=== PATIENT | female | born 1940 | race Caucasian/White ===

== ENCOUNTER 2016-06-03 17:31 | Observation (INO) | payer MEDICARE, OTHER ==
[2016-06-03 18:20] LABS: Mean Cell Volume 80.1 fl (78-100); Mean Corpuscular Hemoglobin 24.9 pg (27-31); Mean Corpuscular Hgb Conc 31.1 g/dl (32-36); Mean Platelet Volume 12.8 fl (6.0-9.5); Neutrophil # 8.6 K/mm3 (1.3-6.0); Neutrophil % 72.1 % (42-75.0); Platelet Count 95 K/mm3 (150-450); Red Blood Count 2.97 M/mm3 (4.2-5.4); Red Cell Distribution Width 16.7 % (11.5-14.0); White Blood Count 11.9 K/mm3 (4.0-10.5)
[2016-06-03 18:22] LABS: Hematocrit 23.8 % (37.0-47.0); Hemoglobin 7.4 gm/dL (12.5-16.0)
[2016-06-03 18:37] LABS: Albumin * 2.7 gm/dl (3.4-5.0); Bilirubin, Total 2.2 mg/dL (0.0-1.1); Ca. Corrected For Albumin 9.4 mg/dL (8.4-10.2); Calcium * 8.7 mg/dL (7.9-10.9); Carbon Dioxide 20.6 mmol/L (24-32.6); Potassium 3.6 mmol/L (3.4-4.6); Troponin I 0.03 ng/ml (0.00-0.10)
--- NOTE | 2016-06-03 19:50 | ERNOTE ---
Dyspnea - General Presenting Symptoms: shortness of breath Time Seen by Provider: 06/03/16 19:34 Source: patient, family Exam Limitations: no limitations - Immun/Allergies/Home Medications Immunizations: IMMUNIZATION HX Immunizations Up to Date Yes History of Influenza Vaccine Yes Hx Pneumococcal Vaccination Yes Allergies/Adverse Reactions: Allergies Penicillins Allergy (Verified 06/03/16 17:54) tetracycline Allergy (Verified 06/03/16 17:54) Home Medications: HOME MEDICATIONS Levothyroxine Sodium [Synthroid] 75 mcg PO DAILY 08/04/15 [Last Taken Unknown] Multivit-Min/FA/Lycopene/Lut [Sentry Senior Multivitamin Tab] 1 each PO DAILY [Last Taken Unknown] Omeprazole [Prilosec] 20 mg PO DAILY 08/04/15 [Last Taken Unknown] Cholecalciferol [Vitamin D] 2,000 unit PO DAILY #.1 capsule 03/19/16 [Last Taken Unknown] glipiZIDE [Glucotrol Xl] 5 mg PO DAILY #.1 tablet 03/19/16 [Last Taken Unknown] Cyanocobalamin (Vitamin B-12) [Vitamin B-12] 500 mcg PO DAILY 06/03/16 [Last Taken Unknown] Furosemide [Lasix] 40 mg PO DAILY 06/03/16 [Last Taken Unknown] Metformin HCl [Metformin HCl ER] 500 mg PO BID 06/03/16 [Last Taken Unknown] Metoprolol Succinate 25 mg PO HS 06/03/16 [Last Taken Unknown] Spironolactone [Aldactone] 12.5 mg PO DAILY 06/03/16 [Last Taken Unknown] - History of Present Illness Narrative: Pt states she has been dyspneic for a couple of days and has had diuretics increased and an echocardiogram to explore CHF as reason for dyspnea. Brought to ER due to increasing dyspnea today Severity: moderate Initiating event: Reports: unknown Frequency of episodes: Reports: occassional episodes Modifying Factors (Worsens): Reports: activity Associated Symptoms-Dyspnea: Reports: palpitations, weakness Prior Treatment: Reports: recently seen, treated by physician Review of Systems - Review of Systems Constitutional: Present: fatigue. Absent: recent illness EYE: Present: no symptoms reported ENT: Present: no symptoms reported Respiratory: Present: shortness of breath, orthopnea, wheezing Cardiology: Present: palpitations, edema Gastrointestinal/Abdominal: Present: diarrhea - once this am, other - denies dark or bloody stools. Absent: nausea, vomiting Genitourinary: Present: no symptoms reported Musculoskeletal: Present: no symptoms reported Skin: Present: no symptoms reported Neurological: Present: weakness. Absent: numbness, tingling Endocrine: Present: no symptoms reported Hematologic/Lymphatic: Present: no symptoms reported Psych: Present: no symptoms reported - Patient's Past Medical History Patient History - Medical: Diabetes Type 2, GERD, Hypothyroidism, Osteoarthritis Patient History - Cardiac/Respiratory: CHF, CVA/Stroke, Hypertension Patient History - Cancer: No Hx of Cancer Patient History - Surgical Procedures: Appendectomy - Family History Father Family History - Medical: Family History - Cardiac/Respiratory: Myocardial Infarction Mother Family History - Medical: , Diabetes Type 2 Family History - Cardiac/Respiratory: History Unknown Sister Family History - Cancer: Breast - Social History Living Situations: spouse Does anyone smoke in the home?: No Alcohol Use: none Drug Use: none Physical Exam - Physical Exam General Appearance: Present: wd/wn, alert, no apparent distress Eye Exam: Normal inspection: bilateral Ears, Nose, Throat: Present: normal pharynx, dry mucous membranes Neck: Present: normal inspection, nontender Respiratory: Present: no respiratory distress, normal breath sounds, no accessory muscle use, lungs clear Cardiovascular/Chest: Present: regular rate, rhythm, systolic murmur - 4/6 left sternal border Gastrointestinal/Abdominal: Present: normal bowel sounds, nontender, nondistended, soft Back Exam: Present: normal inspection, normal range of motion Extremity Exam: Present: extremity edema - 2+ b/l Neurological Exam: Present: alert, oriented, normal mood/affect, no motor/ sensory deficits Skin Exam: Present: normal color, warm/dry Lymphatic Exam: Present: no adenopathy ED Progress - Results and Orders Patient's Lab Results:: I have reviewed the patient's lab results. Results and Orders: Laboratory Tests 06/03/16 06/03/16 18:10 18:10 WBC 11.9 H Hgb 7.4 L* Hct 23.8 L* Plt Count 95 L Sodium 139 Potassium 3.6 Chloride 105 Carbon Dioxide 20.6 L BUN 17 Creatinine 1.13 Est GFR (Non-Af Amer) 50 L D Random Glucose 179 H Calcium 8.7 Total Bilirubin 2.2 H AST 54 H ALT 39 Alkaline Phosphatase 118 Troponin I 0.030 B-Natriuretic Peptide 512 H Total Protein 7.0 Albumin 2.7 L - Vital Signs Patient's Vital Signs:: I have reviewed the patient's vital signs. Vital Signs: Vital Signs 06/03/16 06/03/16 17:47 19:14 Temperature 37.3 C Pulse Rate 99 99 Respiratory 24 H Rate Blood Pressure 125/69 O2 Sat by Pulse 96 Oximetry - Progress/Reassessment Chief Complaint: Dyspnea Departure Clinical Impression: Anemia Qualifiers: Anemia type: unspecified type Qualified Code(s): D64.9 - Anemia, unspecified CHF (congestive heart failure) Qualifiers: Congestive heart failure type: unspecified congestive heart failure type Congestive heart failure chronicity: acute on chronic Qualified Code(s): I50.9 - Heart failure, unspecified - Departure Disposition: [facility] Condition: Fair
[2016-06-03] MEDS ORDERED: ACETAMINOPHEN 325 MG TABLET PO ONE (20:39)
[2016-06-03] MEDS ORDERED: diphenhydrAMINE HCL 50 MG/ML VIAL IV ONE (20:39)
[2016-06-03] MEDS ORDERED: ACETAMINOPHEN 325 MG TABLET ONE (21:42)
[2016-06-03] MEDS ORDERED: diphenhydrAMINE HCL 50 MG/ML VIAL ONE (21:42)
[2016-06-03] MEDS ORDERED: FUROSEMIDE 10 MG/ML VIAL ONE (21:43)
[2016-06-03 22:21] LABS: Iron 16 mcg/dL (35-120); Transferrin Sat. (% Sat.) 5 % (15-55)
--- NOTE | 2016-06-03 22:36 | HP ---
Chief Complaint - Chief Complaint Date of Service: 06/03/16 Time of Service: 22:52 Chief Complaint: SOB History of Present Illness: Pt is a 76 year old pt of Dr. Robertson who presented to the ER with complaints of SOB. PMH is significant for:[id number]. Per EMR: "Pt states she has been dyspneic for a couple of days and has had diuretics increased and an echocardiogram to explore CHF as reason for dyspnea." At the time of my examination pt is slightly drowsy, drifting in and out of sleep due to IV Benadryl given per protocol prior to transfusion ordered in the ER. She just tells me that she has been SOB, cannot elaborate further. Denies hematochezia or hemauria, n/v/d, fevers or chills, or current NSAID use. In the ER workup was significant for H/H 7.4/23.8 (baseline ~03/05), Plt 95, WBC 11.9. K+ 3.6, Na + 139, BNP 512. Chest xray was negative for any acute abnormalities. She was noted to be tachypnic at 24, but O2 sat remained 96% on RA. She will be admitted to observation overnight for 1 unit PRBC transfusion and repeat labs in the morning as well as further workup of the etiology of her anemia. - Patient's Past Medical History Patient History - Medical: Anemia, Diabetes Type 2, GERD, Hypothyroidism, Osteoarthritis Patient History - Cardiac/Respiratory: CHF, CVA/Stroke, Hypertension Patient History - Cancer: No Hx of Cancer Patient History - Surgical Procedures: Appendectomy, Cataracts Patient History - Other: None - Family History Father Family History - Medical: Family History - Cardiac/Respiratory: Myocardial Infarction Mother Family History - Medical: , Diabetes Type 2 Family History - Cardiac/Respiratory: History Unknown Sister Family History - Cancer: Breast - Social History Living Situations: spouse Does anyone smoke in the home?: No Smoking Status: Never smoker Have you smoked in the past 12 months: No Alcohol Use: none Drug Use: none - Immunizations Immunizations Up to Date: Yes Hx Pneumococcal Vaccination: Yes History of Influenza Vaccine: Yes Review Of Systems (GEN) - Review of Systems Generalized/Overall Review: Present: Fatigue EENTM: Present: No Symptoms Reported Respiratory: Present: Shortness of Breath Cardiac: Present: Edema - BLE +1/2 Abdominal: Present: No Symptoms Reported Genitourinary: Present: No Symptoms Reported Musculoskeletal: Present: No Symptoms Reported Neurological: Present: No Symptoms Reported Skin: Present: No Symptoms Reported Endocrine: Present: No Symptoms Reported Allergies/Adverse Reactions: Allergies Allergy/AdvReac Type Severity Reaction Status Date / Time Penicillins Allergy Verified 06/03/16 17:54 tetracycline Allergy Verified 06/03/16 17:54 Home Medications: HOME MEDICATIONS Levothyroxine Sodium [Synthroid] 75 mcg PO DAILY 08/04/15 [Last Taken Unknown] Multivit-Min/FA/Lycopene/Lut [Sentry Senior Multivitamin Tab] 1 each PO DAILY [Last Taken Unknown] Omeprazole [Prilosec] 20 mg PO DAILY 08/04/15 [Last Taken Unknown] Cholecalciferol [Vitamin D] 2,000 unit PO DAILY #.1 capsule 03/19/16 [Last Taken Unknown] glipiZIDE [Glucotrol Xl] 5 mg PO DAILY #.1 tablet 03/19/16 [Last Taken Unknown] Cyanocobalamin (Vitamin B-12) [Vitamin B-12] 500 mcg PO DAILY 06/03/16 [Last Taken Unknown] Furosemide [Lasix] 40 mg PO DAILY 06/03/16 [Last Taken Unknown] Metformin HCl [Metformin HCl ER] 500 mg PO BID 06/03/16 [Last Taken Unknown] Metoprolol Succinate 25 mg PO HS 06/03/16 [Last Taken Unknown] Spironolactone [Aldactone] 12.5 mg PO DAILY 06/03/16 [Last Taken Unknown] Exam - Exam Vital Signs: Vital Signs - Last Taken Temp 36.7 C 06/03/16 21:09 Pulse 93 06/03/16 21:10 Resp 19 06/03/16 21:10 BP 107/53 06/03/16 21:10 Pulse Ox 90 06/03/16 21:10 Constitutional: Present: Alert, Oriented x3, Cooperative, No distress - drowsy, Elderly ENT Exam: Present: hearing grossly normal Eye Exam: bilateral eye: normal inspection, PERRL Back Exam: Present: normal inspection Respiratory: Present: chest non-tender, normal breath sounds, no respiratory distress, decreased breath sounds, No wheezing Cardiovascular/Chest: Present: normal peripheral pulses, regular rate, rhythm, no chest tenderness, no murmur, other - BLE edema, nonpitting Peripheral Pulses: dorsalis-pedis (R): 2+, dorsalis-pedis (L): 2+, radial (R): 2 +, radial (L): 2+ Abdomen: Present: Normal bowel sounds, soft, nontender, nondistended, no rebound tenderness Extremity: Present: normal range of motion, non-tender, normal inspection, no calf tenderness, lower extremity edema, pedal edema Skin Exam: Present: normal color, warm/dry, no cyanosis Neurologic: Present: alert, normal mood/affect, oriented x 3 Appearance: Present: appropriate appearance, appropriate insight Eye contact: Present: cooperative, good eye contact, normal speech Thoughts: Present: normal thought pattern, no apparent hallucination Diagnostic Studies: Laboratory Results Laboratory Tests 06/03/16 06/03/16 18:10 18:10 WBC 11.9 H RBC 2.97 L Hgb 7.4 L* Hct 23.8 L* MCH 24.9 L MCHC 31.1 L RDW 16.7 H Plt Count 95 L Sodium 139 Potassium 3.6 Chloride 105 Carbon Dioxide 20.6 L Anion Gap 17.0 H BUN 17 Creatinine 1.13 Est GFR (Non-Af Amer) 50 L D BUN/Creatinine Ratio 15.0 Random Glucose 179 H Total Bilirubin 2.2 H AST 54 H ALT 39 Alkaline Phosphatase 118 Troponin I 0.030 B-Natriuretic Peptide 512 H Total Protein 7.0 Albumin 2.7 L Assessment/Plan - Assessment/Plan (1) Anemia Assessment: Pt with symptomatic anemia presenting with SOB, unclear etiology at this time, no obvious signs of acute bleed. Will order occult stool. Last h/h in February of 2016 was 10.2/31.2. Will place on iron supplements daily. Transfuse with 1 unit PRBC, 20mg of lasix post transfusion with repeat labs in am. -Iron 325mg PO BIDWM -Transfuse one unit PRBC -20mg IV lasix post transfusion -CBC/CMP in am -PT/INR -TIBC, ferritin, B12, folate studies -Stool for occult blood Problem: Acute Qualifiers: Anemia type: unspecified type Qualified Code(s): D64.9 - Anemia, unspecified (2) Diabetes type 2, controlled Assessment: Stable -Blood glucose AC/HS -Consistent Carb diet -Metformin 500mg daily -Glyburide 5mg daily Problem: Chronic (3) Hypertension Assessment: Stable -Metoprolol 25mg HS Problem: Chronic (4) Hypothyroidism Assessment: Stable -Synthroid 75mcg daily Problem: Chronic (5) CHF (congestive heart failure) Assessment: Stable, echo completed 06/03/2015 -Spironolactone 12.5mg daily -Lasix 40mg daily -Daily wt -Strict i/o Problem: Chronic Qualifiers: Congestive heart failure type: unspecified congestive heart failure type Congestive heart failure chronicity: acute on chronic Qualified Code(s): I50.9 - Heart failure, unspecified
[2016-06-03 22:47] LABS: Folate 18.8 ng/mL (8.6-58.9)
[2016-06-04] MEDS: FUROSEMIDE 10 MG/ML VIAL IV ONE ×2 (01:28→15:17)
[2016-06-04 05:57] LABS: Mean Cell Volume 78.9 fl (78-100); Mean Corpuscular Hemoglobin 25.1 pg (27-31); Mean Corpuscular Hgb Conc 31.8 g/dl (32-36); Platelet Count 82 K/mm3 (150-450); Red Blood Count 3.03 M/mm3 (4.2-5.4); Red Cell Distribution Width 16.4 % (11.5-14.0); White Blood Count 7.6 K/mm3 (4.0-10.5)
[2016-06-04 06:11] LABS: Hematocrit 23.9 % (37.0-47.0); Hemoglobin 7.6 gm/dL (12.5-16.0)
[2016-06-04 06:19] LABS: Prothrombin Time (Patient) 15.4 Seconds (9.4-11.4)
[2016-06-04 06:20] LABS: INR 1.48 INR (0.90-1.10); Partial Thrombolplastin Time 28.7 Seconds (24-32)
[2016-06-04 06:22] LABS: Total Cells Counted 100
[2016-06-04 06:35] LABS: Albumin * 2.4 gm/dl (3.4-5.0); Anion Gap 15.8 mmol/L (6.8-13.8); BUN/Creatinine Ratio 17.9 (9.0-21.6); Bilirubin, Total 2.3 mg/dL (0.0-1.1); Ca. Corrected For Albumin 9.4 mg/dL (8.4-10.2); Calcium * 8.4 mg/dL (7.9-10.9); Carbon Dioxide 22.3 mmol/L (24-32.6); Potassium 3.1 mmol/L (3.4-4.6); Total Protein 6.1 gm/dL (6.2-8.2)
[2016-06-04] MEDS ORDERED: POTASSIUM CHLORIDE 20 MEQ TABLET.SA PO ONE (06:52)
[2016-06-04] MEDS ORDERED: PANTOPRAZOLE SODIUM 20 MG TABLET.DR PO SCH (07:00)
[2016-06-04] MEDS ORDERED: glipiZIDE 5 MG TAB.SR.24H PO SCH (07:00)
[2016-06-04] MEDS ORDERED: LEVOTHYROXINE SODIUM 75 MCG TABLET PO SCH (07:00)
[2016-06-04 08:02] LABS: Atypical (Reactive) Lymph 2 % (0-2); Band 5 % (0-2.0); Hypochromia 1+; Immature Granulocyte 1 (0-1); Lymphocyte 12 % (20-51); Macrocytosis 1+; Microcytosis 1+; Monocyte 6 % (0-9); Neutrophil 74 % (42-75); Neutrophil # 5.6 K/mm3 (1.3-6.0); Platelet Estimate Decreased (NORMAL); Polychromasia Trace; Target Cells Trace
[2016-06-04] MEDS ORDERED: CHOLECALCIFEROL 1,000 UNIT CAPSULE PO SCH (09:00)
[2016-06-04] MEDS ORDERED: SPIRONOLACTONE 25 MG TABLET PO SCH (09:00)
[2016-06-04] MEDS ORDERED: MULTIVITAMINS 1 CAP CAPSULE PO SCH (09:00)
[2016-06-04] MEDS ORDERED: FUROSEMIDE 40 MG TABLET PO SCH (09:00)
[2016-06-04] MEDS ORDERED: POTASSIUM CHLORIDE 20 MEQ TABLET.SA PO SCH (09:00)
[2016-06-04] MEDS ORDERED: CYANOCOBALAMIN 1,000 MCG TABLET PO SCH (09:00)
[2016-06-04] MEDS: metFORMIN HCL 500 MG TABLET PO SCH ×2 (09:04→17:14)
[2016-06-04] MEDS: FERROUS SULFATE 325 MG TABLET PO SCH ×2 (09:04→17:13)
[2016-06-04 09:21] LABS: Iron 26 mcg/dL (35-120); Transferrin Sat. (% Sat.) 9 % (15-55)
[2016-06-04] MEDS ORDERED: FUROSEMIDE 10 MG/ML VIAL IV ONE (09:37)
--- NOTE | 2016-06-04 12:13 | PATHPSR ---
PHYSICIAN: Layne Robertson LAB#: [id number] SPECIMEN DATE: 06/04/2016 CLINICAL INFORMATION: The patient is a 76-year-old woman who presented to ER with history of shortness of breath. She is discovered to have anemia H/H 7.4/ 23.1, Baseline ( in March 19, 2016). The patient has a history of anemia , diabetes type 2, GERD, hypothyroidism, osteoarthritis, congestive heart failure, CVA/stroke, hypertension. Peripheral smear evaluation by the pathologist is ordered due to anemia CBC: WBC 7.6 K/mm3, hemoglobin 7.6 gm/dl, hematocrit 23.9 %, MCV is 70.9 fl, MCH is 25.1 pg, MCHC is 31.8 g/dl, Platelet count 82,000. Manual differential: Neutrophils 74 %, bands 5 %, lymphocytes 12 %, monocytes 6 %, %, atypical reactive lymphocytes 2%, immature granulocytes 1%. RED BLOOD CELLS: 1+ hypochromasia, one process microcytosis, 1+ macrocytosis, trace target cells, 1+ elliptocytes and anemia PLATELETS: Thrombocytopenia WHITE BLOOD CELLS: Left shifted granulocytic series DIAGNOSIS: PERIPHERAL BLOOD SMEAR, REVIEW BY PATHOLOGIST: -ACUTE ANEMIA WITH FEATURES OF IRON DEFICIENCY -THROMBOCYTOPENIA -LEFT SHIFTED GRANULOCYTIC SERIES COMMENT: Examination of the peripheral smear shows some hypochromasia, microcytosis and elliptocytes, features suggestive of iron deficiency. Iron levels are low (26 ug/dL today, 16 ug/dl on 06/03/2016). Thrombocytopenia is longer term and present in February 2016. The etiology needs further evaluation including exclusion of consumption or immune thrombocytopenia. Left shift in granulocytic series appears reactive to acute illness. Hematology consultation and possible bone marrow evaluation may be necessary to evaluate the low platelet count. The low platelet count makes bleeding more likely and contributes to the possible etiology of the iron deficiency anemia. The findings are discussed with Dr. Robertson on 06/04/2016. No immature elements or malignancy is identified on our examination.
--- NOTE | 2016-06-04 14:40 | DS ---
(1) Iron deficiency anemia Problem: Acute Qualifiers: Iron deficiency anemia type: unspecified iron deficiency Qualified Code(s) : D50.9 - Iron deficiency anemia, unspecified (2) CHF (congestive heart failure) Problem: Chronic Qualifiers: Congestive heart failure type: diastolic Congestive heart failure chronicity: chronic Qualified Code(s): I50.32 - Chronic diastolic (congestive ) heart failure (3) Hypothyroidism Problem: Chronic Qualifiers: Hypothyroidism type: unspecified Qualified Code(s): E03.9 - Hypothyroidism , unspecified (4) Diabetes mellitus Problem: Chronic Qualifiers: Diabetes mellitus type: type 2 Diabetes mellitus complication status: with hyperglycemia (5) Obesity (BMI 30.0-34.9) Problem: Chronic Description of Stay: DATE OF ADMISSION: 06/03/2016. DATE OF DISCHARGE: 06/04/2016. HOSPITAL COURSE: Patient is a 76-yr old WF with a H/O HTN, T2 DM, HLD, GERD, OA, CVA who came into the ER for shortness of breath and difficulty in breathing. She was found to have a H /H 7.4/23.8 compared to H&H 10.2/31.2 [02/2016 when T sat was 27%, B12 normal]. T sat was 5% with B12 1769. The patient was anemic in 2014 and does not recall having a workup done. She denies any abdominal pain, nausea, vomiting or weight loss. She takes Excedrin most of the nights for arthritic pain besides a baby aspirin daily. She was transfused with one unit of PRBC on 06/03/2016 with a H&H going up marginally to 7.6/23.9. She received a second unit of PRBC as she continued to be short of breath and has a history of CHF on 06/04/2016 followed by 20 mg furosemide 20 mg IV. Potassium was supplemented. Also states she has had intermittent diarrhea on and off not related to food intake. Will DC metformin ER and increase Glucotrol XL from 5 mg to 10 mg 30 minutes before breakfast daily. Records from [facility] indicates she had a colonoscopy in 2007 which shows diverticulosis and hemorrhoids. No records of an EGD/US/CT were faxed. She is to have [facility] 2 and an outpatient basis through the [facility]. The patient, her and son would like to find the cause of anemia. She was advised to avoid ASA, EtOH and all NSAIDs. Patient is being discharged in a stable condition on 06/04/2016. She is being referred to Dr. Vasquez for possible EGD and BX. More than 30 minutes spent with patient, preparation and dictating discharge summary Procedures Performed: none Results and Findings: Laboratory Tests 03/19/16 06/03/16 06/04/16 05:44 18:10 05:00 WBC 6.4 11.9 H 7.6 D Hgb 10.2 L 7.4 L* 7.6 L* Hct 31.2 L 23.8 L* 23.9 L* Plt Count 74 L 95 L 82 L 06/03/16 06/04/16 18:10 05:00 Plasma Sodium 140 142 Potassium 3.6 3.1 L Chloride 105 106 Carbon Dioxide 20.6 L 22.3 L BUN 17 17 Creatinine 1.13 0.95 Est GFR (Non-Af Amer) 50 L D 61 D Calcium Adj for Albumin 9.4 9.4 Iron 16 L 26 L Total Bilirubin 2.2 H 2.3 H AST 54 H 49 H ALT 39 34 Alkaline Phosphatase 118 102 Total Protein 7.0 6.1 L Albumin 2.7 L 2.4 L 06/03/16 18:10 TIBC 333 Transferrin % Sat 5 L Troponin I 0.030 B-Natriuretic Peptide 512 H Vitamin B12 1769 H 06/03/2016: CXR PA and lateral: Cardiac silhouette is slightly enlarged. There is diffuse interstitial prominence which could be due to edema. There are bilateral posterior pleural effusions. No focal consolidation. No pneumothorax. Osseous structures are intact. IMPRESSION: 1. Correlate for fluid overload/CHF. Discharge Disposition: Home self care Disposition: Home self-care Condition: Fair Discharge Activity: Activity as tolerated - ambulate with walker at all times. Discharge Diet: Consistent carbs, Low salt, Low fat/chol, High Fiber Referrals: Layne Robertson MD [Primary Care Provider] - Additional Patient Instructions (free text): Has [facility] on going, please call and fax discharge information. Please note: 1. Metformin ER has been discontinued. 2. Glipizide or Glucotrol XL has been increased from 5- to 10 mg PO half hour before breakfast. Patient to get Feraheme 2 through the [facility]. PLAIN YOGURT 6 OZ twice a day ; can have frozen FRUIT with it. use tuba oil program compliance specialist properly. Elevate feet at night. NO EXCEDRIN;NO ASA; NO NSAIDS; TYLENOL 500 MG 2 TABS AT BED TIME. Please make an appointment with Dr. Vasquez for possibe EGD. Appt with Dr. Boggs in 2 weeks with CBC and BMP done prior to appt. Prescriptions (Any new or edited meds): Ferumoxytol [Feraheme] 510 mg IV Q7D #2 vial Glipizide [Glucotrol Xl] 10 mg PO DAILY #30 tab.er.24 Complete Home Medications List: Complete Home Medication List: Levothyroxine Sodium [Synthroid] 75 mcg PO DAILY 08/04/15 Multivit-Min/FA/Lycopene/Lut [Sentry Senior Multivitamin Tab] 1 each PO DAILY Omeprazole [Prilosec] 20 mg PO DAILY 08/04/15 Cholecalciferol [Vitamin D] 2,000 unit PO DAILY #.1 capsule 03/19/16 Cyanocobalamin (Vitamin B-12) [Vitamin B-12] 500 mcg PO DAILY 06/03/16 Furosemide [Lasix] 40 mg PO DAILY 06/03/16 Metoprolol Succinate 25 mg PO HS 06/03/16 Spironolactone [Aldactone] 12.5 mg PO DAILY 06/03/16 Ferumoxytol [Feraheme] 510 mg IV Q7D #2 vial 06/04/16 Glipizide [Glucotrol Xl] 10 mg PO DAILY #30 tab.er.24 06/04/16 Amb Orders for Discharge: Basic Metabolic Panel Time Frame: 2 Weeks, Location: Determined By Patient CBC Time Frame: 2 Weeks, Location: Determined By Patient
[2016-06-04 15:09] VITALS: BP 129/52
[2016-06-04] MEDS: POTASSIUM CHLORIDE 20 MEQ TABLET.SA PO SCH ×2 (15:18→17:14)
[2016-06-04] MEDS ORDERED: METOPROLOL SUCCINATE 25 MG TABLET.SA PO SCH (21:00)
== END 2016-06-04 19:25 | disposition home or self-care (01) ==
LOC: ER 17:31 → MS 20:22
PROVIDERS: ADMIT Nurse Practitioner Gerontology; ATTEND Internal Medicine
PROC: 30233N1 Transfusion of Nonautologous Red Blood Cells into Peripheral Vein, Percutaneous Approach (ICD-10-PCS; principal; 2016-06-03)
DX: D50.9 Iron deficiency anemia, unspecified (principal); I50.32 Chronic diastolic (congestive) heart failure; E03.9 Hypothyroidism, unspecified; E66.9 Obesity, unspecified; Z68.30 Body mass index [BMI] 30.0-30.9, adult; M19.90 Unspecified osteoarthritis, unspecified site; K21.9 Gastro-esophageal reflux disease without esophagitis; Z79.899 Other long term (current) drug therapy; Z90.49 Acquired absence of other specified parts of digestive tract; Z86.73 Personal history of transient ischemic attack (TIA), and cerebral infarction without residual deficits; Z82.49 Family history of ischemic heart disease and other diseases of the circulatory system; Z83.3 Family history of diabetes mellitus; Z80.3 Family history of malignant neoplasm of breast
CPT/HCPCS: 36415; 36430; 71020; 80053; 82272; 82607; 82728; 82746; 83540; 83550; 83880; 84443; 84484; 85007; 85025; 85045; 85610; 85730; 86850; 86900; 93005; 93306; 94760; 99284; G0378; P9016